=== PATIENT | male | born 1985 | race Hispanic/Latino ===

== ENCOUNTER 2017-08-01 22:34 | Emergency (ER) | payer OTHER ==
[2017-08-01] MEDS ORDERED: SODIUM CHLORIDE 0.9% 250 ML IV ONE (23:24)
[2017-08-01] MEDS ORDERED: TETANUS/DIPHTHERIA TOXOID [ADULT] 0.5 ML VIAL IM ONE (23:30)
[2017-08-01] MEDS ORDERED: AMOXICILLIN/POTASSIUM CLAV 875-125 TABLET PO ONE (23:30)
== END 2017-08-01 23:53 | disposition home or self-care (01) ==
LOC: EDH 22:34
DX: S60.411A Abrasion of left index finger, initial encounter (principal); W54.0XXA Bitten by dog, initial encounter; Y93.89 Activity, other specified; Y92.098 Other place in other non-institutional residence as the place of occurrence of the external cause; Y99.8 Other external cause status
CPT/HCPCS: 90471; 90714; 99283; J7030

== ENCOUNTER 2017-12-12 15:19 | Emergency (ER) | payer OTHER ==
[2017-12-12] MEDS ORDERED: KETOROLAC TROMETHAMINE 60 MG/2 ML VIAL ONE (16:56)
== END 2017-12-12 18:01 | disposition home or self-care (01) ==
LOC: EDH 15:19
DX: S30.0XXA Contusion of lower back and pelvis, initial encounter (principal); W18.39XA Other fall on same level, initial encounter; Y93.89 Activity, other specified; Y92.89 Other specified places as the place of occurrence of the external cause; Y99.8 Other external cause status
CPT/HCPCS: 72100; 96372; 99284; J1885

== ENCOUNTER 2019-12-30 11:56 | Emergency (ER) | payer SELFPAY ==
[2019-12-30] MEDS ORDERED: KETOROLAC TROMETHAMINE 60 MG/2 ML VIAL ONE (12:34)
== END 2019-12-30 14:06 | disposition home or self-care (01) ==
LOC: EDH 11:56
DX: S52.531B Colles' fracture of right radius, initial encounter for open fracture type I or II (principal); I10 Essential (primary) hypertension; W18.09XA Striking against other object with subsequent fall, initial encounter; Y93.01 Activity, walking, marching and hiking; Y92.89 Other specified places as the place of occurrence of the external cause; Y99.8 Other external cause status
CPT/HCPCS: 29125; 73090; 73110; 73130; 96372; 99284; J1885